=== PATIENT | male | born 1950 | race Caucasian/White ===

== ENCOUNTER 2022-08-10 08:19 | Emergency (ER) | payer MEDICARE ==
[~2022-08-10] VITALS: Ht 185.4 cm; Wt 102.1 kg
[~2022-08-10 08:19] MED LIST: AMLODIPINE BESYL5 MG PO; FLOMAX0.4 MG PO; LEVOTHYROXINE112 MCG PO; LISINOPRIL-HCT1 EAC1; METFORMIN HCL850 MG PO; PANTOPRAZOLE SO40 MG PO; PRAVASTATIN SOD40 MG
[2022-08-10 09:10] LABS: EOSINOPHILS # (AUTO) 0.2 (0.0-0.4); EOSINOPHILS % 5.7 % (0.0-6.0); HEMATOCRIT 40.5 % (38.2-49.6); HEMOGLOBIN 13.5 g/dL (14.0-18.0); LYMPHOCYTES # (AUTO) 0.7 (1.0-3.2); LYMPHOCYTES % 16.3 % (18.0-39.1); MEAN CORPUSCULAR HEMOGLOBIN 30.6 pg (28-32); MEAN CORPUSCULAR HGB CONC 33.3 g/dL (31-35); MEAN CORPUSCULAR VOLUME 91.8 fL (81-99); MONOCYTES # (AUTO) 0.4 (0.2-0.8); MONOCYTES % 10.9 % (4.4-11.3); NEUTROPHILS # (AUTO) 2.7 (2.1-6.9); NEUTROPHILS % 65.9 % (38.7-80.0); PLATELET COUNT 177 x10e3/uL (140-360); RED BLOOD COUNT 4.41 x10e6/uL (4.3-5.7); RED CELL DISTRIBUTION WIDTH 13.3 % (11.7-14.4)
[2022-08-10 09:25] LABS: ALBUMIN 3.8 g/dL (3.5-5.0); ALBUMIN/GLOBULIN RATIO 1.5 (0.8-2.0); ANION GAP 13.3 mmol/L (8-16); CALCIUM 9.3 mg/dL (8.4-10.2); CREATININE, SERUM 1.32 mg/dL (0.72-1.25); POTASSIUM 4.3 mmol/L (3.5-5.1)
[2022-08-10] MEDS ORDERED: TRIAMTERENE-HC1 EAC2 (10:52)
[2022-08-10] MEDS ORDERED: OMEPRAZOLE40 MG PO (10:54)
[2022-08-10 12:43] VITALS: BP 106/61; PULSE 56; RESP 18; TEMP 98; O2SAT 98
== END 2022-08-10 11:00 | disposition home or self-care (01) ==
LOC: ER 08:23
DX: E11.649 Type 2 diabetes mellitus with hypoglycemia without coma (principal); I10 Essential (primary) hypertension; E78.5 Hyperlipidemia, unspecified; K21.9 Gastro-esophageal reflux disease without esophagitis
CPT/HCPCS: 36415; 80053; 82948; 85025

== ENCOUNTER 2024-07-27 17:39 | Observation (INO) | payer MEDICARE ==
[~2024-07-27] VITALS: Ht 182.9 cm; Wt 111.1 kg
[~2024-07-27 17:39] MED LIST changes: +OMEPRAZOLE40 MG PO; +TRIAMTERENE-HC1 EAC2
[2024-07-27 18:08] VITALS: TEMP 98.4
[2024-07-27 18:37] LABS: BASOPHILS % 0.9 % (0.0-1.0); EOSINOPHILS # (AUTO) 0.2 (0.0-0.4); EOSINOPHILS % 3.8 % (0.0-6.0); HEMATOCRIT 39.3 % (38.2-49.6); HEMOGLOBIN 12.8 g/dL (14.0-18.0); LYMPHOCYTES # (AUTO) 0.7 (1.0-3.2); LYMPHOCYTES % 15.6 % (18.0-39.1); MEAN CORPUSCULAR HEMOGLOBIN 29.5 pg (28-32); MEAN CORPUSCULAR HGB CONC 32.6 g/dL (31-35); MEAN CORPUSCULAR VOLUME 90.6 fL (81-99); MONOCYTES # (AUTO) 0.5 (0.2-0.8); MONOCYTES % 11.5 % (4.4-11.3); PLATELET COUNT 153 x10e3/uL (140-360); RED BLOOD COUNT 4.34 x10e6/uL (4.3-5.7); RED CELL DISTRIBUTION WIDTH 13.8 % (11.7-14.4); WHITE BLOOD COUNT 4.42 x10e3/uL (4.8-10.8)
[2024-07-27 18:57] LABS: ALBUMIN 3.7 g/dL (3.5-5.0); ALBUMIN/GLOBULIN RATIO 1.5 (0.8-2.0); ANION GAP 13.7 mmol/L (8-16); BILIRUBIN,TOTAL 0.6 mg/dL (0.2-1.2); CALCIUM 9.2 mg/dL (8.4-10.2); CREATININE, SERUM 1.51 mg/dL (0.72-1.25); POTASSIUM 4.7 mmol/L (3.5-5.1); TOTAL PROTEIN 6.1 g/dL (6.5-8.1)
[2024-07-27] MEDS: ASPIRIN 81 MG CHEW TAB PO ONE (18:59)
[2024-07-27 19:02] LABS: TROPONIN I 0.007 ng/mL (0-0.300)
[2024-07-27] MEDS ORDERED: ONDANSETRON HCL INJ 2MG/ML 2ML 2 MG/ML VIAL IV PRN ×2 (19:30→23:45)
[2024-07-27] MEDS ORDERED: Morphine 4mg INJECTION 4 MG/ML INJ IV PRN (19:30)
[2024-07-27 19:35] VITALS: PULSE 61; RESP 18
[2024-07-27 20:00] VITALS: BP 126/73; PULSE 52; RESP 18; TEMP 98.2; O2SAT 99
[2024-07-27 21:00] VITALS: BP 126/73; PULSE 66; RESP 18; TEMP 97.8; O2SAT 99
[2024-07-27] MEDS ORDERED: GABAPENTIN300 MG PO (21:23)
[2024-07-27] MEDS ORDERED: METFORMIN HCL1000 MG PO (21:23)
[2024-07-27] MEDS ORDERED: LOSARTAN POTAS100 MG PO (21:23)
[2024-07-27] MEDS ORDERED: ASPIRIN81 MG PO (21:23)
[2024-07-27] MEDS ORDERED: CLOPIDOGREL75 MG PO (21:23)
[2024-07-27] MEDS ORDERED: LOPRESSOR25 MG PO (21:23)
[2024-07-27] MEDS ORDERED: ROSUVASTATIN CA20 MG PO (21:23)
[2024-07-27] MEDS ORDERED: TRAZODONE HCL50 MG PO (21:23)
[2024-07-27] MEDS ORDERED: CETIRIZINE HCL10 MG PO (21:23)
[2024-07-27] MEDS ORDERED: LEVOTHYROXINE175 MCG PO (21:23)
[2024-07-27] MEDS: SODIUM CHLORIDE 0.9% 1000ML 1,000 ML IV SCH (21:25)
[2024-07-27 21:30] VITALS: BP 126/73; PULSE 66; RESP 18; TEMP 97.8; O2SAT 99
[2024-07-27] MEDS ORDERED: ACETAMINOPHEN 325 MG TAB PO PRN (23:45)
[2024-07-27] MEDS ORDERED: DEXTROSE 50% SYRINGE 50 ML IV PRN (23:45)
[2024-07-28] VITALS: BP 134/66; PULSE 53; RESP 18; TEMP 97.6; O2SAT 98
[2024-07-28] MEDS: TRAZODONE HCL 50 MG TAB PO SCH (00:21)
[2024-07-28 01:20] LABS: TROPONIN I 0.005 ng/mL (0-0.300)
[2024-07-28 04:00] VITALS: BP 124/61; PULSE 60; RESP 18; TEMP 97.9; O2SAT 99
[2024-07-28 05:25] LABS: BASOPHILS % 1.1 % (0.0-1.0); EOSINOPHILS # (AUTO) 0.3 (0.0-0.4); EOSINOPHILS % 6.9 % (0.0-6.0); HEMATOCRIT 37.6 % (38.2-49.6); HEMOGLOBIN 12.4 g/dL (14.0-18.0); LYMPHOCYTES # (AUTO) 0.9 (1.0-3.2); LYMPHOCYTES % 24.2 % (18.0-39.1); MEAN CORPUSCULAR HEMOGLOBIN 29.5 pg (28-32); MEAN CORPUSCULAR VOLUME 89.5 fL (81-99); MONOCYTES # (AUTO) 0.5 (0.2-0.8); MONOCYTES % 13.7 % (4.4-11.3); NEUTROPHILS % 53.8 % (38.7-80.0); PLATELET COUNT 141 x10e3/uL (140-360); RED CELL DISTRIBUTION WIDTH 13.7 % (11.7-14.4); WHITE BLOOD COUNT 3.64 x10e3/uL (4.8-10.8)
[2024-07-28 05:57] LABS: ALBUMIN 3.5 g/dL (3.5-5.0); ALBUMIN/GLOBULIN RATIO 1.7 (0.8-2.0); ANION GAP 14.2 mmol/L (8-16); BILIRUBIN,TOTAL 0.5 mg/dL (0.2-1.2); CALCIUM 8.8 mg/dL (8.4-10.2); CREATININE, SERUM 1.28 mg/dL (0.72-1.25); POTASSIUM 4.2 mmol/L (3.5-5.1); TOTAL PROTEIN 5.6 g/dL (6.5-8.1)
[2024-07-28] MEDS: PANTOPRAZOLE SOD 40 MG TABEC PO SCH (06:11)
[2024-07-28 06:38] LABS: TROPONIN I 0.004 ng/mL (0-0.300)
[2024-07-28 07:52] VITALS: BP 142/85; PULSE 55; RESP 19; TEMP 98.2; O2SAT 99
[2024-07-28] MEDS: LEVOTHYROXINE SODIUM 75 MCG TAB PO SCH (08:26)
[2024-07-28] MEDS: ASPIRIN 81 MG CHEW TAB PO SCH (08:27)
[2024-07-28] MEDS: CLOPIDOGREL BISULFATE 75 MG TAB PO SCH (08:27)
[2024-07-28] MEDS: AMLODIPINE BESYLATE 5 MG TAB PO SCH (08:27)
[2024-07-28] MEDS: GABAPENTIN 300 MG CAP PO SCH (08:27)
[2024-07-28] MEDS: LEVOTHYROXINE SODIUM 100 MCG TAB PO SCH (08:27)
[2024-07-28] MEDS: INSULIN LISPRO 100 UNIT/1 ML 3ML VIAL SQ SCH (08:28)
[2024-07-28] MEDS: METOPROLOL TARTRATE 25 MG TAB PO SCH (08:28)
[2024-07-28 09:10] VITALS: BP 142/85; PULSE 55; RESP 19; TEMP 98.2; O2SAT 99
[2024-07-28 11:06] VITALS: BP 123/77; PULSE 65; RESP 19; TEMP 97.9; O2SAT 98
[2024-07-28] MEDS ORDERED: LORATADINE 10 MG TAB PO SCH (21:00)
== END 2024-07-28 14:38 | disposition home or self-care (01) ==
LOC: ER 18:04 → ERHOLD 19:32 → MED/SURG 20:48
PROVIDERS: ADMIT Internal Medicine; ATTEND Internal Medicine
DX: R07.89 Other chest pain (principal); I25.10 Atherosclerotic heart disease of native coronary artery without angina pectoris; Z95.5 Presence of coronary angioplasty implant and graft; I11.9 Hypertensive heart disease without heart failure; E11.9 Type 2 diabetes mellitus without complications; E78.5 Hyperlipidemia, unspecified; E11.40 Type 2 diabetes mellitus with diabetic neuropathy, unspecified; Z79.84 Long term (current) use of oral hypoglycemic drugs; K21.9 Gastro-esophageal reflux disease without esophagitis; E03.9 Hypothyroidism, unspecified
CPT/HCPCS: 36415 ×2; 71045; 80053 ×2; 82550 ×2; 82948 ×2; 83690; 83880; 84484 ×2; 85025 ×2; 93005; 93306; 99283; G0378 ×2; J2470; J7030